=== PATIENT | female | born 1985 | race Two or more races ===

== ENCOUNTER 2016-08-25 11:14 | Emergency (ER) | payer SELFPAY ==
[~2016-08-25] VITALS: Ht 160 cm; Wt 75.8 kg
[2016-08-25 11:24] VITALS: BP 109/66
== END 2016-08-25 11:55 | disposition left against medical advice (07) ==
LOC: ED 11:43
DX: Z00.00 Encounter for general adult medical examination without abnormal findings (principal); Z53.21 Procedure and treatment not carried out due to patient leaving prior to being seen by health care provider